=== PATIENT | male | born 1955 | race African-American/Black ===

== ENCOUNTER 2021-04-04 12:53 | Inpatient (IN) | payer MEDICAID ==
[~2021-04-04] VITALS: Ht 182.9 cm; Wt 65.8 kg
[~2021-04-04 12:53] MED LIST: ALBU18HF2 IH; CLON0.1T PO; HYDR100T26 PO; LOSA100T3 PO; NIFE-32 PO
[2021-04-04] MEDS ORDERED: NITROGLYCERIN OINT 1GM/INCH UDPKT TD ONE (13:15)
[2021-04-04] MEDS ORDERED: MORPHINE SULFATE 2 MG/ML CPJ (NOT FOR IM USE) IV ONE (15:15)
[2021-04-04] MEDS ORDERED: LORAZEPAM 2MG/ML CPJ IM ONE (15:15)
[2021-04-04] MEDS ORDERED: CLONIDINE 0.2MG TABLET PO ONE (15:45)
[2021-04-04 16:01] LABS: BASOPHILS % 0.8 % (0.0-2.0); EOSINOPHILS % 0.5 % (0.0-5.0); HEMATOCRIT. 29.8 % (42.0-52.0); HEMOGLOBIN. 9.8 g/dL (14.0-18.0); LYMPHOCYTES % 11.1 % (20.0-50.0); MEAN CORPUSCULAR HEMOGLOBIN 29.7 pg (28.0-32.0); MEAN PLATELET VOLUME 8.5 fl (7.4-10.4); NEUTROPHILS % 82.6 % (40.0-76.0); PLATELET 234 x1000/uL (130-400); RED BLOOD CELL COUNT 3.31 mill/uL (4.7-6.1); RED CELL DISTRIBUTION WIDTH 18.7 % (11.6-14.6)
[2021-04-04 16:07] LABS: CHLORIDE 99 mEq/L (98-107)
[2021-04-04] MEDS ORDERED: SODIUM POLYSTYRENE SULFONATE 15 G/60 ML BOT PO ONE (16:45)
[2021-04-04] MEDS ORDERED: SODIUM BICARBONATE 8.4% 1 MEQ/ML 50ML SYR IV ONE (16:45)
[2021-04-04] MEDS ORDERED: CALCIUM CHLORIDE 1GM/10ML SYR IV ONE (16:45)
[2021-04-04] MEDS ORDERED: DEXTROSE 50% WATER 50ML SYRINGE IV ONE (16:45)
[2021-04-04] MEDS ORDERED: ALBUTEROL (0.083%) 2.5MG/3ML NEB HHN ONE (16:45)
[2021-04-04] MEDS ORDERED: INSULIN REGULAR (HUMULIN R) 300UNITS/3ML VIAL IV ONE (16:45)
[2021-04-04] MEDS ORDERED: DEXTROSE 50% WATER 50ML SYRINGE IV PRN ×2 (19:30→19:45)
[2021-04-04] MEDS ORDERED: HYDRALAZINE 20MG/ML VIAL IV ONE (20:15)
[2021-04-04] MEDS: CLONIDINE 0.2MG TABLET PO PRN (21:30)
[2021-04-04] MEDS ORDERED: HYDRALAZINE 20MG/ML VIAL IV NR (22:30)
[2021-04-05 06:35] LABS: HEPATITIS B SURFACE ANTIGEN NEGATIVE
[2021-04-05] MEDS: CLONIDINE 0.2MG TABLET PO PRN (06:53)
[2021-04-05] MEDS ORDERED: ACETAMINOPHEN 325MG TABLET PO PRN (10:00)
[2021-04-05] MEDS ORDERED: ONDANSETRON HCL 4MG/2ML INJ IV PRN (10:00)
[2021-04-05] MEDS ORDERED: LIDOCAINE HCL 1% 20ML VIAL (Pyxis) INJ ONE (10:03)
[2021-04-05] MEDS: NIFEDIPINE XL 60MG TAB PO SCH (11:03)
[2021-04-05 13:16] LABS: BASOPHILS % 0.9 % (0.0-2.0); EOSINOPHILS % 3.7 % (0.0-5.0); HEMATOCRIT. 23.6 % (42.0-52.0); HEMOGLOBIN. 7.8 g/dL (14.0-18.0); LYMPHOCYTES % 8.1 % (20.0-50.0); MEAN CORPUSCULAR HEMOGLOBIN 29.4 pg (28.0-32.0); MEAN CORPUSCULAR VOLUME 89.3 fL (80.0-94.0); MEAN PLATELET VOLUME 8.7 fl (7.4-10.4); MONOCYTES % 7.3 % (2.0-8.0); PLATELET 188 x1000/uL (130-400); RED BLOOD CELL COUNT 2.64 mill/uL (4.7-6.1); RED CELL DISTRIBUTION WIDTH 18.7 % (11.6-14.6)
[2021-04-05] MEDS ORDERED: HYDRALAZINE HCL 100MG TABLET PO ONE (14:00)
[2021-04-05 18:00] VITALS: BP 159/66
[2021-04-05 18:36] VITALS: BP 159/66
[2021-04-05 20:00] VITALS: BP 173/76
[2021-04-05] MEDS: HYDRALAZINE HCL 100MG TABLET PO SCH (20:47)
[2021-04-05] MEDS: BLOOD SUGAR DIAGNOSTIC STRIP TEST SCH (21:00)
[2021-04-06] VITALS: BP 165/74
[2021-04-06 04:00] VITALS: BP 159/72
[2021-04-06] MEDS: BLOOD SUGAR DIAGNOSTIC STRIP TEST SCH ×2 (06:48→11:46)
[2021-04-06 07:48] VITALS: BP 154/88
[2021-04-06] MEDS: HYDRALAZINE HCL 100MG TABLET PO SCH (08:03)
[2021-04-06] MEDS: NIFEDIPINE XL 60MG TAB PO SCH (08:03)
[2021-04-06 11:45] VITALS: BP 170/66
[2021-04-06] MEDS: CLONIDINE 0.2MG TABLET PO PRN (11:47)
[2021-04-06 14:02] VITALS: BP 149/95
== END 2021-04-06 16:30 | disposition home or self-care (01) | DRG 425 ==
LOC: ER 12:53 → MICUSO 16:41 → EDBEDREQ 16:43 → EDBEDREQSVC 16:43 → ENRESERV 19:57 → CANRESERV 19:57 → EDBEDREQSVC 22:52 → EDBEDREQTM 22:52 → 7EST 04-05 15:12 → CANBEDREQ 04-05 20:40
PROVIDERS: ADMIT Internal Medicine; ATTEND Internal Medicine
PROC: 5A1D70Z Performance of Urinary Filtration, Intermittent, Less than 6 Hours Per Day (ICD-10-PCS; 2021-04-04)
PROC: 02HV33Z Insertion of Infusion Device into Superior Vena Cava, Percutaneous Approach (ICD-10-PCS; principal; 2021-04-05)
PROC: B548ZZA Ultrasonography of Superior Vena Cava, Guidance (ICD-10-PCS; 2021-04-05)
DX: E87.70 Fluid overload, unspecified (principal); J96.01 Acute respiratory failure with hypoxia; E11.649 Type 2 diabetes mellitus with hypoglycemia without coma; E87.1 Hypo-osmolality and hyponatremia; E11.22 Type 2 diabetes mellitus with diabetic chronic kidney disease; D64.9 Anemia, unspecified; E87.5 Hyperkalemia; I16.0 Hypertensive urgency; I12.0 Hypertensive chronic kidney disease with stage 5 chronic kidney disease or end stage renal disease; N18.6 End stage renal disease; Z99.2 Dependence on renal dialysis; Z88.8 Allergy status to other drugs, medicaments and biological substances; Z79.899 Other long term (current) drug therapy; Z86.11 Personal history of tuberculosis
CPT/HCPCS: 36415; 71045; 76937; 80048; 80053; 82962; 83036; 84484; 85025; 86705; 86709; 86803; 87340; 93005; 99291; C1725; J0360; J1815; J2060; J3490

== ENCOUNTER 2021-06-02 11:29 | Inpatient (IN) | payer MEDICAID ==
[~2021-06-02] VITALS: Ht 182.9 cm; Wt 106.6 kg
[2021-06-02 14:09] LABS: CHLORIDE 102 mEq/L (98-107)
[2021-06-02 14:10] LABS: BASOPHILS % 0.9 % (0.0-2.0); EOSINOPHILS % 3.1 % (0.0-5.0); HEMATOCRIT. 24.5 % (42.0-52.0); HEMOGLOBIN. 7.9 g/dL (14.0-18.0); LYMPHOCYTES % 17.2 % (20.0-50.0); MEAN CORPUSCULAR HEMOGLOBIN 29.3 pg (28.0-32.0); MEAN CORPUSCULAR VOLUME 90.7 fL (80.0-94.0); MEAN PLATELET VOLUME 8.3 fl (7.4-10.4); NEUTROPHILS % 68.8 % (40.0-76.0); PLATELET 210 x1000/uL (130-400); RED CELL DISTRIBUTION WIDTH 20.6 % (11.6-14.6)
[2021-06-02] MEDS ORDERED: MORPHINE SULFATE 4 MG/ML CPJ (NOT FOR IM USE) IV ONE (15:15)
[2021-06-02] MEDS ORDERED: DEXTROSE 50% WATER 50ML SYRINGE IV ONE (15:30)
[2021-06-02] MEDS ORDERED: SODIUM POLYSTYRENE SULFONATE 15 G/60 ML BOT PO ONE (15:30)
[2021-06-02] MEDS ORDERED: ALBUTEROL (0.083%) 2.5MG/3ML NEB HHN ONE (15:30)
[2021-06-02] MEDS ORDERED: SODIUM BICARBONATE 8.4% 1 MEQ/ML 50ML SYR IV ONE (15:30)
[2021-06-02] MEDS ORDERED: INSULIN REGULAR (HUMULIN R) 300UNITS/3ML VIAL IV ONE (15:30)
[2021-06-02 20:30] VITALS: BP 181/87
[2021-06-02] MEDS ORDERED: NALOXONE HCL 0.4 MG/ML 1ML VIAL IV PRN (23:45)
[2021-06-02] MEDS ORDERED: DEXTROSE 50% WATER 50ML SYRINGE IV PRN (23:45)
[2021-06-03] VITALS: BP 187/85
[2021-06-03] MEDS: CLONIDINE 0.1MG TABLET PO PRN ×2 (00:09→23:41)
[2021-06-03 01:45] LABS: HEPATITIS B SURFACE ANTIGEN NEGATIVE
[2021-06-03] MEDS: HYDROCODONE/ACETAMINOPHEN 5/325MG TABLET PO PRN ×2 (02:15→23:41)
[2021-06-03 04:00] VITALS: BP 156/88
[2021-06-03] MEDS: BLOOD SUGAR DIAGNOSTIC STRIP TEST SCH ×4 (06:31→21:25)
[2021-06-03] MEDS: SEVELAMER CARBONATE 800 MG TABLET PO SCH ×3 (06:32→17:03)
[2021-06-03] MEDS: HYDRALAZINE HCL 100MG TABLET PO SCH ×3 (06:32→21:34)
[2021-06-03 08:00] VITALS: BP 197/117
[2021-06-03 08:37] LABS: BASOPHILS % 0.7 % (0.0-2.0); EOSINOPHILS % 3.8 % (0.0-5.0); LYMPHOCYTES % 16.4 % (20.0-50.0); MEAN CORPUSCULAR HEMOGLOBIN 29.6 pg (28.0-32.0); MEAN CORPUSCULAR VOLUME 88.8 fL (80.0-94.0); MEAN PLATELET VOLUME 8.4 fl (7.4-10.4); NEUTROPHILS % 65.1 % (40.0-76.0); PLATELET 173 x1000/uL (130-400); RED BLOOD CELL COUNT 2.29 mill/uL (4.7-6.1); RED CELL DISTRIBUTION WIDTH 19.7 % (11.6-14.6)
[2021-06-03 09:02] LABS: HEMATOCRIT. 20.3 % (42.0-52.0); HEMOGLOBIN. 6.8 g/dL (14.0-18.0)
[2021-06-03] MEDS: ASPIRIN 81MG TABLET PO SCH (11:14)
[2021-06-03] MEDS: FOLIC ACID/VITAMIN B COMP W-C TABLET PO SCH (11:14)
[2021-06-03] MEDS: LOSARTAN POTASSIUM 100 MG TABLET PO SCH (11:14)
[2021-06-03] MEDS: NIFEDIPINE XL 60MG TAB PO SCH (11:15)
[2021-06-03 12:00] VITALS: BP 167/89
[2021-06-03 16:00] VITALS: BP 155/84
[2021-06-03] MEDS ORDERED: DEXTROSE 50% WATER 50ML SYRINGE IV PRN ×2 (18:15→18:30)
[2021-06-03] MEDS ORDERED: ACETAMINOPHEN 325MG TABLET PO PRN (18:15)
[2021-06-03] MEDS ORDERED: ONDANSETRON HCL 4MG/2ML INJ IV PRN (18:15)
[2021-06-03] MEDS ORDERED: MAGNESIUM/ALUMINUM HYDROXIDE/SIMETHICONE 30ML UDC PO PRN ×2 (18:15→18:30)
[2021-06-03 19:44] LABS: HEMATOCRIT 23.2 % (42.0-52.0); HEMOGLOBIN 7.5 g/dL (14.0-18.0)
[2021-06-03 20:00] VITALS: BP 181/99
[2021-06-03] MEDS: GABAPENTIN 100MG CAPSULE PO SCH (20:35)
[2021-06-03] MEDS: CARVEDILOL 3.125 MG TABLET PO SCH (20:36)
[2021-06-03] MEDS ORDERED: BLOOD SUGAR DIAGNOSTIC STRIP TEST SCH (21:00)
[2021-06-03] MEDS: INSULIN LISPRO 100 UNITS/ML SUBCUT SCH (21:00)
[2021-06-04] VITALS (7 sets, daily range): BP systolic 121–189; BP diastolic 71–94
[2021-06-04] MEDS: HYDRALAZINE HCL 100MG TABLET PO SCH ×3 (05:30→21:15)
[2021-06-04] MEDS: INSULIN LISPRO 100 UNITS/ML SUBCUT SCH ×4 (05:36→21:00)
[2021-06-04] MEDS: BLOOD SUGAR DIAGNOSTIC STRIP TEST SCH ×4 (05:36→21:15)
[2021-06-04 07:41] LABS: EOSINOPHILS % 5.1 % (0.0-5.0); HEMATOCRIT. 22.1 % (42.0-52.0); HEMOGLOBIN. 7.4 g/dL (14.0-18.0); LYMPHOCYTES % 17.8 % (20.0-50.0); MEAN CORPUSCULAR HEMOGLOBIN 29.9 pg (28.0-32.0); MEAN CORPUSCULAR VOLUME 89.2 fL (80.0-94.0); MEAN PLATELET VOLUME 8.4 fl (7.4-10.4); MONOCYTES % 14.8 % (2.0-8.0); NEUTROPHILS % 61.3 % (40.0-76.0); PLATELET 195 x1000/uL (130-400); RED BLOOD CELL COUNT 2.48 mill/uL (4.7-6.1); RED CELL DISTRIBUTION WIDTH 20.1 % (11.6-14.6)
[2021-06-04 08:17] LABS: PHOSPHORUS 5.5 mg/dL (2.5-4.9)
[2021-06-04 08:19] LABS: T4 FREE 0.69 ng/dL (0.76-1.46)
[2021-06-04] MEDS: LOSARTAN POTASSIUM 100 MG TABLET PO SCH (08:52)
[2021-06-04] MEDS: NIFEDIPINE XL 60MG TAB PO SCH (08:52)
[2021-06-04] MEDS: SEVELAMER CARBONATE 800 MG TABLET PO SCH ×3 (08:52→17:55)
[2021-06-04] MEDS: CARVEDILOL 3.125 MG TABLET PO SCH ×2 (08:52→21:15)
[2021-06-04] MEDS: FOLIC ACID/VITAMIN B COMP W-C TABLET PO SCH (08:52)
[2021-06-04] MEDS: ASPIRIN 81MG TABLET PO SCH (08:53)
[2021-06-04] MEDS: PANTOPRAZOLE SODIUM 40 MG/VIAL IV SCH ×2 (08:53→17:55)
[2021-06-04] MEDS: FERROUS SULFATE 325MG TABLET PO SCH (08:53)
[2021-06-04] MEDS: HYDROCODONE/ACETAMINOPHEN 5/325MG TABLET PO PRN ×2 (12:41→18:16)
[2021-06-04] MEDS: CLONIDINE 0.1MG TABLET PO PRN (18:15)
[2021-06-04] MEDS: GABAPENTIN 100MG CAPSULE PO SCH (21:14)
[2021-06-05] VITALS: BP 149/53
[2021-06-05] MEDS ORDERED: EPOETIN ALFA-EPBX 4,000 UNIT/ML VIAL SUBCUT SCH (01:00)
[2021-06-05 06:31] LABS: BASOPHILS % 0.7 % (0.0-2.0); HEMATOCRIT. 21.7 % (42.0-52.0); HEMOGLOBIN. 6.9 g/dL (14.0-18.0); LYMPHOCYTES % 19.7 % (20.0-50.0); MEAN CORPUSCULAR HEMOGLOBIN 28.8 pg (28.0-32.0); MEAN CORPUSCULAR VOLUME 90.6 fL (80.0-94.0); MEAN PLATELET VOLUME 8.5 fl (7.4-10.4); MONOCYTES % 14.5 % (2.0-8.0); NEUTROPHILS % 59.1 % (40.0-76.0); PLATELET 191 x1000/uL (130-400); RED CELL DISTRIBUTION WIDTH 20.6 % (11.6-14.6)
[2021-06-05] MEDS: INSULIN LISPRO 100 UNITS/ML SUBCUT SCH ×4 (06:58→21:00)
[2021-06-05] MEDS: BLOOD SUGAR DIAGNOSTIC STRIP TEST SCH ×4 (06:58→21:00)
[2021-06-05] MEDS: HYDRALAZINE HCL 100MG TABLET PO SCH ×3 (07:01→21:55)
[2021-06-05 08:00] VITALS: BP 153/63
[2021-06-05] MEDS: FERROUS SULFATE 325MG TABLET PO SCH (08:59)
[2021-06-05] MEDS: FOLIC ACID/VITAMIN B COMP W-C TABLET PO SCH (08:59)
[2021-06-05] MEDS: ASPIRIN 81MG TABLET PO SCH (09:00)
[2021-06-05] MEDS ORDERED: CARVEDILOL 6.25 MG TABLET PO SCH ×2 (09:00→21:00)
[2021-06-05] MEDS: LOSARTAN POTASSIUM 100 MG TABLET PO SCH (09:00)
[2021-06-05] MEDS: NIFEDIPINE XL 60MG TAB PO SCH (09:00)
[2021-06-05] MEDS: SEVELAMER CARBONATE 800 MG TABLET PO SCH ×3 (09:00→17:24)
[2021-06-05] MEDS: PANTOPRAZOLE SODIUM 40 MG/VIAL IV SCH ×2 (09:55→17:24)
[2021-06-05 12:00] VITALS: BP 183/103
[2021-06-05] MEDS: CLONIDINE 0.1MG TABLET PO PRN (12:42)
[2021-06-05] MEDS ORDERED: CARVEDILOL 12.5MG TABLET PO SCH (14:15)
[2021-06-05 16:00] VITALS: BP 175/85
[2021-06-05] MEDS: CLONIDINE 0.1MG TABLET PO SCH (17:25)
[2021-06-05 20:00] VITALS: BP 114/86
[2021-06-05] MEDS ORDERED: AMLODIPINE 5MG TABLET PO SCH (21:00)
[2021-06-05] MEDS: GABAPENTIN 100MG CAPSULE PO SCH (21:55)
[2021-06-06] VITALS (9 sets, daily range): BP systolic 126–184; BP diastolic 69–105
[2021-06-06] MEDS: HYDROCODONE/ACETAMINOPHEN 5/325MG TABLET PO PRN ×2 (03:29→13:37)
[2021-06-06] MEDS: CLONIDINE 0.1MG TABLET PO PRN ×2 (03:30→13:35)
[2021-06-06] MEDS: BLOOD SUGAR DIAGNOSTIC STRIP TEST SCH (06:38)
[2021-06-06] MEDS: HYDRALAZINE HCL 100MG TABLET PO SCH ×3 (06:38→21:03)
[2021-06-06] MEDS: INSULIN LISPRO 100 UNITS/ML SUBCUT SCH (06:40)
[2021-06-06 07:51] LABS: INR 1.1; PROTHROMBIN TIME 11.7 sec (9.6-11.0)
[2021-06-06 07:55] LABS: BASOPHILS % 0.9 % (0.0-2.0); EOSINOPHILS % 4.5 % (0.0-5.0); LYMPHOCYTES % 21.2 % (20.0-50.0); MEAN CORPUSCULAR HEMOGLOBIN 28.7 pg (28.0-32.0); MEAN CORPUSCULAR VOLUME 90.6 fL (80.0-94.0); MEAN PLATELET VOLUME 8.3 fl (7.4-10.4); MONOCYTES % 13.2 % (2.0-8.0); NEUTROPHILS % 60.2 % (40.0-76.0); PLATELET 152 x1000/uL (130-400); RED BLOOD CELL COUNT 2.24 mill/uL (4.7-6.1); RED CELL DISTRIBUTION WIDTH 19.7 % (11.6-14.6)
[2021-06-06 08:09] LABS: FOLIC ACID (FOLATE) SERUM >20 ng/mL ng/mL (>5.38)
[2021-06-06 08:10] LABS: FERRITIN 698 ng/mL (22-322)
[2021-06-06 08:12] LABS: HEMATOCRIT. 20.3 % (42.0-52.0); HEMOGLOBIN. 6.4 g/dL (14.0-18.0)
[2021-06-06] MEDS: ASPIRIN 81MG TABLET PO SCH (09:53)
[2021-06-06] MEDS: FOLIC ACID/VITAMIN B COMP W-C TABLET PO SCH (09:53)
[2021-06-06] MEDS: CLONIDINE 0.1MG TABLET PO SCH (09:53)
[2021-06-06] MEDS: PANTOPRAZOLE SODIUM 40 MG/VIAL IV SCH ×2 (09:53→18:39)
[2021-06-06] MEDS: SEVELAMER CARBONATE 800 MG TABLET PO SCH ×3 (09:53→18:45)
[2021-06-06] MEDS: NIFEDIPINE XL 60MG TAB PO SCH (09:53)
[2021-06-06] MEDS: LOSARTAN POTASSIUM 100 MG TABLET PO SCH (09:54)
[2021-06-06] MEDS: FERROUS SULFATE 325MG TABLET PO SCH (09:55)
[2021-06-06] MEDS: CARVEDILOL 12.5MG TABLET PO SCH ×2 (10:00→21:03)
[2021-06-06] MEDS ORDERED: DIATR MEGLU/DIATRIZOATE SOLN 30ML PO SCH (10:30)
[2021-06-06] MEDS ORDERED: SODIUM POLYSTYRENE SULFONATE 15 G/60 ML BOT PO NR (13:30)
[2021-06-06] MEDS: CLONIDINE 0.2MG TABLET PO SCH ×2 (19:36→22:00)
[2021-06-06] MEDS: GABAPENTIN 100MG CAPSULE PO SCH (21:02)
[2021-06-07] VITALS: BP 116/65
[2021-06-07 04:00] VITALS: BP 140/70
[2021-06-07] MEDS: HYDRALAZINE HCL 100MG TABLET PO SCH ×2 (05:20→14:00)
[2021-06-07] MEDS: HYDROCODONE/ACETAMINOPHEN 5/325MG TABLET PO PRN (05:21)
[2021-06-07] MEDS: CLONIDINE 0.2MG TABLET PO SCH ×2 (05:21→14:00)
[2021-06-07 07:18] LABS: BASOPHILS % 0.8 % (0.0-2.0); EOSINOPHILS % 4.7 % (0.0-5.0); HEMATOCRIT. 24.3 % (42.0-52.0); LYMPHOCYTES % 19.9 % (20.0-50.0); MEAN CORPUSCULAR HEMOGLOBIN 29.1 pg (28.0-32.0); MEAN CORPUSCULAR VOLUME 88.3 fL (80.0-94.0); MEAN PLATELET VOLUME 8.8 fl (7.4-10.4); MONOCYTES % 10.7 % (2.0-8.0); NEUTROPHILS % 63.9 % (40.0-76.0); PLATELET 161 x1000/uL (130-400); RED BLOOD CELL COUNT 2.75 mill/uL (4.7-6.1); RED CELL DISTRIBUTION WIDTH 19.5 % (11.6-14.6)
[2021-06-07 07:26] LABS: INR 1.1; PROTHROMBIN TIME 11.3 sec (9.6-11.0)
[2021-06-07 07:52] VITALS: BP 133/69
[2021-06-07] MEDS: SEVELAMER CARBONATE 800 MG TABLET PO SCH ×3 (08:19→17:29)
[2021-06-07] MEDS: NIFEDIPINE XL 60MG TAB PO SCH (08:19)
[2021-06-07] MEDS: CARVEDILOL 12.5MG TABLET PO SCH (08:19)
[2021-06-07] MEDS: ASPIRIN 81MG TABLET PO SCH (08:19)
[2021-06-07] MEDS: FOLIC ACID/VITAMIN B COMP W-C TABLET PO SCH (08:19)
[2021-06-07] MEDS: PANTOPRAZOLE SODIUM 40 MG/VIAL IV SCH ×2 (08:19→17:29)
[2021-06-07] MEDS: LOSARTAN POTASSIUM 100 MG TABLET PO SCH (08:19)
[2021-06-07] MEDS: FERROUS SULFATE 325MG TABLET PO SCH (08:21)
[2021-06-07] MEDS ORDERED: IOHEXOL-300 100 ML BOTTLE ONE (11:26)
[2021-06-07 12:58] VITALS: BP 116/65
[2021-06-07 16:00] VITALS: BP 121/67
[2021-06-07 17:00] LABS: VITAMIN B12 SERUM 689 pg/mL (211-911)
[2021-06-07 20:00] VITALS: BP 153/95
[2021-06-07 20:23] LABS: BASOPHILS % 0.7 % (0.0-2.0); EOSINOPHILS % 3.9 % (0.0-5.0); HEMATOCRIT. 24.8 % (42.0-52.0); HEMOGLOBIN. 8.2 g/dL (14.0-18.0); LYMPHOCYTES % 17.7 % (20.0-50.0); MEAN CORPUSCULAR HEMOGLOBIN 29.1 pg (28.0-32.0); MEAN CORPUSCULAR VOLUME 88.3 fL (80.0-94.0); MEAN PLATELET VOLUME 8.5 fl (7.4-10.4); NEUTROPHILS % 66.7 % (40.0-76.0); PLATELET 169 x1000/uL (130-400); RED BLOOD CELL COUNT 2.81 mill/uL (4.7-6.1); RED CELL DISTRIBUTION WIDTH 19.3 % (11.6-14.6)
[2021-06-08] VITALS: BP 147/94
[2021-06-08] MEDS: CLONIDINE 0.2MG TABLET PO SCH ×4 (00:06→21:31)
[2021-06-08] MEDS: GABAPENTIN 100MG CAPSULE PO SCH ×2 (00:06→21:11)
[2021-06-08] MEDS: CARVEDILOL 12.5MG TABLET PO SCH ×3 (00:06→21:14)
[2021-06-08] MEDS: HYDRALAZINE HCL 100MG TABLET PO SCH ×4 (00:07→21:31)
[2021-06-08 04:00] VITALS: BP 137/82
[2021-06-08] MEDS: LEVOTHYROXINE SODIUM 50MCG TABLET PO SCH (05:29)
[2021-06-08 08:00] VITALS: BP 163/94
[2021-06-08] MEDS: FERROUS SULFATE 325MG TABLET PO SCH (09:00)
[2021-06-08 10:32] LABS: INR 1.1; PROTHROMBIN TIME 11.4 sec (9.6-11.0)
[2021-06-08] MEDS: LOSARTAN POTASSIUM 100 MG TABLET PO SCH (10:34)
[2021-06-08] MEDS: ASPIRIN 81MG TABLET PO SCH ×2 (10:34→14:28)
[2021-06-08] MEDS: FOLIC ACID/VITAMIN B COMP W-C TABLET PO SCH (10:35)
[2021-06-08] MEDS: NIFEDIPINE XL 60MG TAB PO SCH (10:36)
[2021-06-08] MEDS: PANTOPRAZOLE SODIUM 40 MG/VIAL IV SCH ×2 (10:36→17:22)
[2021-06-08] MEDS: SEVELAMER CARBONATE 800 MG TABLET PO SCH ×3 (10:36→18:48)
[2021-06-08 12:00] VITALS: BP 168/91
[2021-06-08] MEDS ORDERED: SODIUM POLYSTYRENE SULFONATE 15 G/60 ML BOT PO NR (15:00)
[2021-06-08 16:00] VITALS: BP 151/84
[2021-06-08 20:00] VITALS: BP 131/72
[2021-06-09] VITALS: BP 129/78
[2021-06-09 04:00] VITALS: BP 153/91
[2021-06-09] MEDS: HYDRALAZINE HCL 100MG TABLET PO SCH (06:03)
[2021-06-09] MEDS: LEVOTHYROXINE SODIUM 50MCG TABLET PO SCH (06:03)
[2021-06-09] MEDS: CLONIDINE 0.2MG TABLET PO SCH (06:03)
[2021-06-09 07:26] LABS: HEMATOCRIT. 23.8 % (42.0-52.0); HEMOGLOBIN. 7.9 g/dL (14.0-18.0); LYMPHOCYTES % 17.3 % (20.0-50.0); MEAN CORPUSCULAR HEMOGLOBIN 29.5 pg (28.0-32.0); MEAN CORPUSCULAR VOLUME 88.6 fL (80.0-94.0); MEAN PLATELET VOLUME 8.7 fl (7.4-10.4); NEUTROPHILS % 65.7 % (40.0-76.0); PLATELET 194 x1000/uL (130-400); RED BLOOD CELL COUNT 2.68 mill/uL (4.7-6.1); RED CELL DISTRIBUTION WIDTH 18.8 % (11.6-14.6)
[2021-06-09 07:32] LABS: INR 1.1; PROTHROMBIN TIME 11.6 sec (9.6-11.0)
[2021-06-09 08:00] VITALS: BP 184/90
[2021-06-09] MEDS: PANTOPRAZOLE SODIUM 40 MG/VIAL IV SCH (08:18)
[2021-06-09] MEDS: LOSARTAN POTASSIUM 100 MG TABLET PO SCH (08:18)
[2021-06-09] MEDS: SEVELAMER CARBONATE 800 MG TABLET PO SCH ×2 (08:19→12:44)
[2021-06-09] MEDS: CARVEDILOL 12.5MG TABLET PO SCH (08:19)
[2021-06-09] MEDS: FOLIC ACID/VITAMIN B COMP W-C TABLET PO SCH (08:20)
[2021-06-09] MEDS: NIFEDIPINE XL 60MG TAB PO SCH (08:20)
[2021-06-09] MEDS: FERROUS SULFATE 325MG TABLET PO SCH (08:21)
[2021-06-09] MEDS ORDERED: LEVO50TA8 PO (10:47)
[2021-06-09 12:00] VITALS: BP 157/78
[2021-06-09 14:23] VITALS: BP 157/78
== END 2021-06-09 16:00 | disposition home or self-care (01) | DRG 253 ==
LOC: ER 11:48 → 8WST 15:18 → EDBEDREQ 15:22 → EDBEDREQTM 15:22 → ENRESERV 18:37
PROVIDERS: ADMIT Internal Medicine; ATTEND Internal Medicine
PROC: 5A1D70Z Performance of Urinary Filtration, Intermittent, Less than 6 Hours Per Day (ICD-10-PCS; 2021-06-02)
PROC: 5A1D70Z Performance of Urinary Filtration, Intermittent, Less than 6 Hours Per Day (ICD-10-PCS; 2021-06-04)
PROC: 5A1D70Z Performance of Urinary Filtration, Intermittent, Less than 6 Hours Per Day (ICD-10-PCS; 2021-06-05)
PROC: 30233N1 Transfusion of Nonautologous Red Blood Cells into Peripheral Vein, Percutaneous Approach (ICD-10-PCS; principal; 2021-06-06)
PROC: 5A1D70Z Performance of Urinary Filtration, Intermittent, Less than 6 Hours Per Day (ICD-10-PCS; 2021-06-06)
PROC: 5A1D70Z Performance of Urinary Filtration, Intermittent, Less than 6 Hours Per Day (ICD-10-PCS; 2021-06-07)
DX: K92.2 Gastrointestinal hemorrhage, unspecified (principal); J96.00 Acute respiratory failure, unspecified whether with hypoxia or hypercapnia; I13.2 Hypertensive heart and chronic kidney disease with heart failure and with stage 5 chronic kidney disease, or end stage renal disease; E44.0 Moderate protein-calorie malnutrition; N18.6 End stage renal disease; D64.9 Anemia, unspecified; E11.22 Type 2 diabetes mellitus with diabetic chronic kidney disease; E87.5 Hyperkalemia; Z20.822 Contact with and (suspected) exposure to COVID-19; D18.00 Hemangioma unspecified site; B19.20 Unspecified viral hepatitis C without hepatic coma; Z99.2 Dependence on renal dialysis; Z91.19 Patient's noncompliance with other medical treatment and regimen; Z87.891 Personal history of nicotine dependence; Z68.31 Body mass index [BMI] 31.0-31.9, adult; Z79.899 Other long term (current) drug therapy; Z88.8 Allergy status to other drugs, medicaments and biological substances; I50.9 Heart failure, unspecified
CPT/HCPCS: 36415; 71045; 74177; 76700; 80048; 80053; 80061; 80076; 82270; 82607; 82728; 82746; 82962; 83036; 83540; 83550; 83735; 83880; 84100; 84439; 84443; 84484; 85014; 85018; 85025; 85044; 86705; 86709; 86803; 86850; 86900; 86920; 87340; 87426; 93005; 93306; 93970; 94644; 97162; 99291; C9113; J0885; J1815; J2270; J3490; P9016; Q9967

== ENCOUNTER 2021-09-14 08:48 | Inpatient (IN) | payer MEDICAID ==
[~2021-09-14] VITALS: Ht 182.9 cm; Wt 78.1 kg
[~2021-09-14 08:48] MED LIST changes: +LEVO50TA8 PO
[2021-09-14 09:43] LABS: BASOPHILS % 0.7 % (0.0-2.0); EOSINOPHILS % 2.2 % (0.0-5.0); HEMATOCRIT. 25.4 % (42.0-52.0); HEMOGLOBIN. 8.8 g/dL (14.0-18.0); LYMPHOCYTES % 11.4 % (20.0-50.0); MEAN CORPUSCULAR HEMOGLOBIN 30.6 pg (28.0-32.0); MEAN CORPUSCULAR VOLUME 88.3 fL (80.0-94.0); MEAN PLATELET VOLUME 7.9 fl (7.4-10.4); MONOCYTES % 5.3 % (2.0-8.0); NEUTROPHILS % 80.4 % (40.0-76.0); PLATELET 191 x1000/uL (130-400); RED BLOOD CELL COUNT 2.88 mill/uL (4.7-6.1); RED CELL DISTRIBUTION WIDTH 18.6 % (11.6-14.6)
[2021-09-14] MEDS ORDERED: FUROSEMIDE 100MG/10ML VIAL IV STA (10:06)
[2021-09-14 10:07] LABS: CHLORIDE 99 mEq/L (98-107)
[2021-09-14] MEDS ORDERED: CALCIUM CHLORIDE 1GM/10ML SYR IV ONE (10:15)
[2021-09-14] MEDS ORDERED: SODIUM POLYSTYRENE SULFONATE 15 G/60 ML BOT PO ONE (10:15)
[2021-09-14] MEDS ORDERED: ONDANSETRON HCL 4MG/2ML INJ IV ONE (10:15)
[2021-09-14] MEDS ORDERED: DEXTROSE 50% WATER 50ML SYRINGE IV ONE (10:15)
[2021-09-14] MEDS ORDERED: SODIUM BICARBONATE 8.4% 1 MEQ/ML 50ML SYR IV ONE (10:15)
[2021-09-14] MEDS ORDERED: ALBUTEROL (0.083%) 2.5MG/3ML NEB HHN ONE (10:15)
[2021-09-14] MEDS ORDERED: INSULIN REGULAR (HUMULIN R) 300UNITS/3ML VIAL IV ONE (10:15)
[2021-09-14] MEDS ORDERED: SODIUM POLYSTYRENE SULFONATE 15 G/60 ML BOT PO NR (11:15)
[2021-09-14] MEDS ORDERED: ONDANSETRON HCL 4MG/2ML INJ IV PRN (12:00)
[2021-09-14] MEDS ORDERED: ACETAMINOPHEN 325MG TABLET PO PRN (12:00)
[2021-09-14] MEDS: CLONIDINE 0.1MG TABLET PO PRN ×2 (12:41→16:49)
[2021-09-14 12:50] LABS: HEPATITIS B SURFACE ANTIGEN NEGATIVE
[2021-09-14] MEDS: NIFEDIPINE XL 60MG TAB PO SCH (13:34)
[2021-09-14] MEDS ORDERED: HYDRALAZINE 20MG/ML VIAL IV ONE (14:30)
[2021-09-14] MEDS ORDERED: CLONIDINE 0.1MG TABLET PO NR (16:30)
[2021-09-14] MEDS ORDERED: LABETALOL 5MG/ML SYR 20 MG/4 ML SYRINGE IV ONE (18:00)
[2021-09-14] MEDS: LABETALOL 5MG/ML SYR 20 MG/4 ML SYRINGE IV ONE ×2 (18:02→21:31)
[2021-09-14 18:07] LABS: BG BASE EXCESS -0.3 mmol/L (-2.0-2.0); BG CARBOXYHEMOGLOBIN 0.8 % (0.5-1.5); BG DEOXYHEMOGLOBIN 2.8 % (0.0-5.0); BG HCO3 ACT 23.7 mmol/L (22.0-26.0); BG METHEMOGLOBIN 0.3 % (0.0-1.5); BG OXYGEN SATURATION 97.2 % (92.0-98.5); BG OXYHEMOGLOBIN 96.1 % (94.0-97.0); BG PCO2 36.4 mmHg (35.0-45.0); BG PH 7.432 (7.350-7.450); BG PO2 98.5 mmHg (75.0-100.0); BG SAMPLE SITE RIGHT RADIAL; BG TOTAL HEMOGLOBIN 9.6 g/dL (12.0-18.0); BG VENT MODE MASK - NRB
[2021-09-14] MEDS: EPOETIN ALFA-EPBX 10,000 UNIT/ML VIAL SUBCUT SCH (21:30)
[2021-09-14 23:49] VITALS: BP 147/88
[2021-09-15] MEDS ORDERED: GABA-529 PO (00:41)
[2021-09-15] MEDS ORDERED: OFLO5DRO3 (00:41)
[2021-09-15 04:00] VITALS: BP 157/96
[2021-09-15] MEDS ORDERED: SEVE800T8 PO (06:11)
[2021-09-15] MEDS: HYDRALAZINE HCL 100MG TABLET PO SCH ×3 (06:24→20:53)
[2021-09-15 08:00] VITALS: BP 188/116
[2021-09-15] MEDS: SEVELAMER CARBONATE 800 MG TABLET PO SCH ×3 (08:47→17:37)
[2021-09-15] MEDS: NIFEDIPINE XL 60MG TAB PO SCH ×3 (08:47→20:53)
[2021-09-15] MEDS: CLONIDINE 0.2MG TABLET PO SCH ×3 (08:47→20:52)
[2021-09-15 10:34] LABS: BASOPHILS % 0.8 % (0.0-2.0); EOSINOPHILS % 2.4 % (0.0-5.0); HEMATOCRIT. 22.6 % (42.0-52.0); HEMOGLOBIN. 7.5 g/dL (14.0-18.0); MEAN CORPUSCULAR HEMOGLOBIN 29.3 pg (28.0-32.0); MEAN CORPUSCULAR VOLUME 88.4 fL (80.0-94.0); MEAN PLATELET VOLUME 8.2 fl (7.4-10.4); NEUTROPHILS % 78.8 % (40.0-76.0); PLATELET 165 x1000/uL (130-400); RED BLOOD CELL COUNT 2.56 mill/uL (4.7-6.1); RED CELL DISTRIBUTION WIDTH 18.9 % (11.6-14.6)
[2021-09-15 11:03] LABS: PHOSPHORUS 7.4 mg/dL (2.5-4.9)
[2021-09-15 12:00] VITALS: BP 182/111
[2021-09-15] MEDS: CLONIDINE 0.1MG TABLET PO PRN (12:38)
[2021-09-15 16:00] VITALS: BP 124/90
[2021-09-15 20:00] VITALS: BP 108/75
[2021-09-15] MEDS: GABAPENTIN 100MG CAPSULE PO SCH (21:01)
[2021-09-16 00:22] VITALS: BP 130/81
[2021-09-16 04:00] VITALS: BP 142/85
[2021-09-16] MEDS: HYDRALAZINE HCL 100MG TABLET PO SCH ×3 (06:31→23:39)
[2021-09-16 08:00] VITALS: BP 188/104
[2021-09-16 08:19] LABS: BASOPHILS % 0.7 % (0.0-2.0); EOSINOPHILS % 3.7 % (0.0-5.0); HEMATOCRIT. 21.9 % (42.0-52.0); HEMOGLOBIN. 7.1 g/dL (14.0-18.0); LYMPHOCYTES % 19.1 % (20.0-50.0); MEAN CORPUSCULAR HEMOGLOBIN 29.1 pg (28.0-32.0); MEAN CORPUSCULAR VOLUME 89.7 fL (80.0-94.0); MEAN PLATELET VOLUME 8.3 fl (7.4-10.4); MONOCYTES % 8.8 % (2.0-8.0); NEUTROPHILS % 67.7 % (40.0-76.0); PLATELET 143 x1000/uL (130-400); RED BLOOD CELL COUNT 2.44 mill/uL (4.7-6.1); RED CELL DISTRIBUTION WIDTH 18.9 % (11.6-14.6)
[2021-09-16] MEDS: CLONIDINE 0.2MG TABLET PO SCH (08:41)
[2021-09-16] MEDS: SEVELAMER CARBONATE 800 MG TABLET PO SCH ×3 (08:41→17:36)
[2021-09-16] MEDS: NIFEDIPINE XL 60MG TAB PO SCH ×2 (08:41→21:33)
[2021-09-16 08:46] LABS: PHOSPHORUS 6.2 mg/dL (2.5-4.9)
[2021-09-16 12:00] VITALS: BP 168/105
[2021-09-16 16:00] VITALS: BP 156/88
[2021-09-16 20:00] VITALS: BP 159/88
[2021-09-16] MEDS: GABAPENTIN 100MG CAPSULE PO SCH (21:32)
[2021-09-16] MEDS: EPOETIN ALFA-EPBX 10,000 UNIT/ML VIAL SUBCUT SCH (21:32)
[2021-09-16] MEDS: CLONIDINE 0.3MG TABLET PO SCH (21:33)
[2021-09-17] VITALS (8 sets, daily range): BP systolic 99–151; BP diastolic 60–85
[2021-09-17] MEDS: HYDRALAZINE HCL 100MG TABLET PO SCH ×3 (05:58→21:24)
[2021-09-17 07:54] LABS: BASOPHILS % 0.9 % (0.0-2.0); EOSINOPHILS % 4.4 % (0.0-5.0); HEMOGLOBIN. 7.9 g/dL (14.0-18.0); MEAN CORPUSCULAR HEMOGLOBIN 29.3 pg (28.0-32.0); MEAN CORPUSCULAR VOLUME 88.7 fL (80.0-94.0); MEAN PLATELET VOLUME 8.3 fl (7.4-10.4); MONOCYTES % 9.2 % (2.0-8.0); NEUTROPHILS % 68.5 % (40.0-76.0); PLATELET 137 x1000/uL (130-400); RED CELL DISTRIBUTION WIDTH 17.9 % (11.6-14.6)
[2021-09-17 08:28] LABS: PHOSPHORUS 6.6 mg/dL (2.5-4.9)
[2021-09-17] MEDS: SEVELAMER CARBONATE 800 MG TABLET PO SCH ×3 (08:34→17:51)
[2021-09-17] MEDS: NIFEDIPINE XL 60MG TAB PO SCH ×2 (08:34→21:24)
[2021-09-17] MEDS: CLONIDINE 0.3MG TABLET PO SCH ×2 (08:34→21:29)
[2021-09-17] MEDS ORDERED: SODIUM POLYSTYRENE SULFONATE 15 G/60 ML BOT PO NR (12:00)
[2021-09-17] MEDS: CLONIDINE 0.1MG TABLET PO PRN (21:24)
[2021-09-17] MEDS: GABAPENTIN 100MG CAPSULE PO SCH (21:24)
[2021-09-18] VITALS: BP 155/95
[2021-09-18 04:00] VITALS: BP 142/86
[2021-09-18] MEDS: SEVELAMER CARBONATE 800 MG TABLET PO SCH ×3 (06:24→17:33)
[2021-09-18] MEDS: HYDRALAZINE HCL 100MG TABLET PO SCH ×2 (06:24→13:21)
[2021-09-18 06:36] LABS: BASOPHILS % 0.8 % (0.0-2.0); EOSINOPHILS % 5.8 % (0.0-5.0); HEMATOCRIT. 24.9 % (42.0-52.0); HEMOGLOBIN. 8.4 g/dL (14.0-18.0); LYMPHOCYTES % 17.3 % (20.0-50.0); MEAN CORPUSCULAR HEMOGLOBIN 29.7 pg (28.0-32.0); MEAN CORPUSCULAR VOLUME 87.6 fL (80.0-94.0); MEAN PLATELET VOLUME 8.7 fl (7.4-10.4); MONOCYTES % 10.3 % (2.0-8.0); NEUTROPHILS % 65.8 % (40.0-76.0); PLATELET 156 x1000/uL (130-400); RED BLOOD CELL COUNT 2.84 mill/uL (4.7-6.1)
[2021-09-18 07:32] LABS: PHOSPHORUS 5.6 mg/dL (2.5-4.9)
[2021-09-18 08:00] VITALS: BP 141/91
[2021-09-18] MEDS: CLONIDINE 0.3MG TABLET PO SCH (09:17)
[2021-09-18] MEDS: NIFEDIPINE XL 60MG TAB PO SCH (09:17)
[2021-09-18 12:00] VITALS: BP 114/75
[2021-09-18 14:53] VITALS: BP 114/75
[2021-09-18 16:00] VITALS: BP 129/84
== END 2021-09-18 18:08 | disposition home or self-care (01) | DRG 133 ==
LOC: ER 08:48 → MICUSO 10:59 → EDBEDREQ 11:02 → EDBEDREQTM 11:02 → ENRESERV 22:33 → 5WST 09-15 00:59
PROVIDERS: ADMIT Internal Medicine; ATTEND Internal Medicine
PROC: 5A1D70Z Performance of Urinary Filtration, Intermittent, Less than 6 Hours Per Day (ICD-10-PCS; 2021-09-14)
PROC: 5A1D70Z Performance of Urinary Filtration, Intermittent, Less than 6 Hours Per Day (ICD-10-PCS; 2021-09-15)
PROC: 30233N1 Transfusion of Nonautologous Red Blood Cells into Peripheral Vein, Percutaneous Approach (ICD-10-PCS; principal; 2021-09-17)
PROC: 5A1D70Z Performance of Urinary Filtration, Intermittent, Less than 6 Hours Per Day (ICD-10-PCS; 2021-09-17)
DX: J96.00 Acute respiratory failure, unspecified whether with hypoxia or hypercapnia (principal); I13.2 Hypertensive heart and chronic kidney disease with heart failure and with stage 5 chronic kidney disease, or end stage renal disease; I47.2 Ventricular tachycardia; N18.6 End stage renal disease; E87.1 Hypo-osmolality and hyponatremia; E87.5 Hyperkalemia; D64.9 Anemia, unspecified; E11.22 Type 2 diabetes mellitus with diabetic chronic kidney disease; I16.0 Hypertensive urgency; I48.91 Unspecified atrial fibrillation; E78.5 Hyperlipidemia, unspecified; I50.9 Heart failure, unspecified; Z20.822 Contact with and (suspected) exposure to COVID-19; I34.0 Nonrheumatic mitral (valve) insufficiency; Z82.49 Family history of ischemic heart disease and other diseases of the circulatory system; Z83.3 Family history of diabetes mellitus; Z99.2 Dependence on renal dialysis; Z88.8 Allergy status to other drugs, medicaments and biological substances; Z79.899 Other long term (current) drug therapy
CPT/HCPCS: 36415; 36600; 71045; 80048; 80053; 82375; 82805; 83735; 83880; 84100; 84484; 85025; 86705; 86709; 86803; 86850; 86900; 86920; 87340; 87426; 93005; 99291; J0360; J0885; J1815; J1940; J2405; J3490; P9016